=== PATIENT | female | born 1975 | race Caucasian/White ===

== ENCOUNTER → 2017-05-11 | Outpatient (CLI) | payer BC ==
--- NOTE | 2017-05-11 12:19 | Diagnostic Imaging Report ---
TECHNIQUE: Multiple real-time grayscale images were obtained over the gravid uterus. COMPARISON: There are no previous exams available for comparison. FINDINGS: There is a single live fetus in cephalic presentation. heart motion was noted and a rate of 138 bpm was recorded. There were no abnormalities identified. The placenta is anterior and there is no previa. The amniotic fluid volume is within normal limits. The growth parameters are fairly uniform. IMPRESSION: 1. There is a single live fetus approximately 28 weeks 5 days gestation + / - 3 weeks. EDC is 07/29/2017. 2. There were no abnormalities identified. 3. The growth parameters are fairly uniform. Biometrical measurements are as follows: Biparietal 7.22 cm, age 29 weeks 0 days. Head circumference 26.71 cm, age 29 weeks 0 days. Abdominal circumference 23.67 cm, age 28 weeks 0 days. Femur length 5.39 cm, age 28 weeks 4 days. Sonographic estimate age: 28 weeks 5 days. Sonographic estimated date of delivery: 07-29-17. Estimated Weight: 1213 gm (+/- 177 gm). LMP percentile: 74%. heart rate: 138 beats per minute. number: 1 of 1. Dictated by: Dictated on workstation # [id number]
== END ==
LOC: RAD 10:04
PROVIDERS: ATTEND Obstetrics & Gynecology
DX: O24.415 Gestational diabetes mellitus in pregnancy, controlled by oral hypoglycemic drugs (principal); Z3A.28 28 weeks gestation of pregnancy
CPT/HCPCS: 76805

== ENCOUNTER → 2017-05-29 | Outpatient (CLI) | payer BC ==
--- NOTE | 2017-05-29 20:19 | Diagnostic Imaging Report ---
INDICATION: Gestational diabetes. FINDINGS: Honeycutt gestation receives a normal 8 out of 8 biophysical profile score. Positioning was breech, the placenta anterior. There was no abruption or previa. IMPRESSION: 1. Normal 8 out of 8 biophysical profile, honeycutt gestation, in breech position. 2. Not mentioned above, nondilated cervix measuring 4.2 cm normal in length. Dictated by: Dictated on workstation # [id number]
== END ==
LOC: RAD 10:04
PROVIDERS: ATTEND Obstetrics & Gynecology
DX: O09.513 Supervision of elderly primigravida, third trimester (principal); O24.414 Gestational diabetes mellitus in pregnancy, insulin controlled; Z3A.00 Weeks of gestation of pregnancy not specified
CPT/HCPCS: 76805; 76819

== ENCOUNTER → 2017-06-11 | Outpatient (CLI) | payer BC ==
--- NOTE | 2017-06-11 13:54 | Diagnostic Imaging Report ---
INDICATION: Check growth, AMA, biophysical profile. TECHNIQUE: Multiple real-time grayscale images were obtained over the gravid uterus. COMPARISON: 05/11/2017 and 05/29/2017. FINDINGS: The recent OB ultrasound exam of 05/29/2017 noted a single live fetus with a biophysical profile score of 8/8. On this exam, the fetus is again identified. The fetus is cephalic in presentation. heart motion was noted and a rate of 133 bpm was recorded. The biophysical profile score remains 8/8 and within normal limits. There are no abnormalities identified. The placenta is anterior and there is no previa. The amniotic fluid volume is within normal limits. The growth parameters are fairly uniform. Biometrical measurements are as follows: Biparietal 8.3 cm, age 33 weeks 3 days. Head circumference 30.0 cm, age 33 weeks 2 days. Abdominal circumference 28.9 cm, age 33 weeks 0 days. Femur length 6.2 cm, age 32 weeks 2 days. Sonographic estimate age: 33 weeks 0 days. Sonographic estimated date of delivery: 07/30/17. Estimated Weight: 2046 gm (+/- 299 gm). LMP percentile: 69%. heart rate: 133 beats per minute. number: 1 of 1. IMPRESSION: 1. There is a single live fetus approximately 33 weeks gestation +/- 2 weeks. The EDC remains July 29, 2017. 2. There were no abnormalities identified. The biophysical profile score remains 8/8 and within normal limits. 3. The growth parameters have progressed as expected since the prior exam. Dictated by: Dictated on workstation # [id number]
== END ==
LOC: RAD 12:46
PROVIDERS: ATTEND Obstetrics & Gynecology
DX: O09.513 Supervision of elderly primigravida, third trimester (principal); O24.414 Gestational diabetes mellitus in pregnancy, insulin controlled; Z3A.33 33 weeks gestation of pregnancy
CPT/HCPCS: 76805; 76819

== ENCOUNTER → 2017-06-25 | Outpatient (CLI) | payer BC ==
--- NOTE | 2017-06-25 11:47 | Diagnostic Imaging Report ---
INDICATION: Gestational diabetes. TECHNIQUE: Multiple Real-time grayscale images were obtained over the gravid uterus. COMPARISON: 06/11/2017 FINDINGS: The heart rate is 160 BPM. The placenta is anterior. There is no placenta previa. The amniotic fluid index is 9 cm. There are breathing movements seen, as expected; however, the tone and movement did not meet the criteria for a total biophysical profile score of 4 out of 8 points. Biometrical measurements are as follows: Biparietal 8.8 cm, age 35 weeks 4 days. Head circumference 30.1 cm, age 34 weeks 3 days. Abdominal circumference 30.0 cm, age 34 weeks 4 days. Femur length 6.9 cm, age 35 weeks 2 days. Sonographic estimate age: 35 weeks 0 days. Sonographic estimated date of delivery: 07/30/17. Estimated Weight: 2508 gm (+/- 366 gm). LMP percentile: 70%. heart rate: 160 beats per minute. number: 1 of 1. IMPRESSION: The total biophysical profile score is 4 out of 8 points. The findings were called to Dr. Sidhu's nurse Ciera at 11:15 AM by Miss Sunita Hatch, the radiographer technologist who performed the exam. Dictated by: Dictated on workstation # [id number]
== END ==
LOC: RAD 10:07
PROVIDERS: ATTEND Nurse Practitioner
DX: O24.419 Gestational diabetes mellitus in pregnancy, unspecified control (principal); Z3A.35 35 weeks gestation of pregnancy
CPT/HCPCS: 76805; 76819

== ENCOUNTER 2017-06-30 16:35 | Outpatient (CLI) | payer BC ==
[~2017-06-30] VITALS: Ht 160 cm; Wt 78.9 kg
[2017-06-30] MEDS ORDERED: OMEP10SU PO (16:49)
[2017-06-30] MEDS ORDERED: PNV1TABL9 PO (16:49)
[2017-06-30] MEDS ORDERED: GLYB1TAB18 PO (16:49)
[2017-06-30] MEDS ORDERED: INFLUENZA TRIvalent 2017-2018 0.5 ML/45 MCG SYR IM ONE (17:30)
--- NOTE | 2017-06-30 17:51 | Diagnostic Imaging Report ---
INDICATION: Decreased movements. TECHNIQUE: Multiple real-time grayscale images were obtained over the gravid uterus. COMPARISON: None FINDINGS: There is a single live intrauterine gestation in cephalic position. Placenta is anterior and grade 2. Biometrical measurements are as follows: Biparietal 8.86 cm, age 35 weeks 6 days. Head circumference 31.32 cm, age 35 weeks 1 days. Abdominal circumference 29.91 cm, age 34 weeks 0 days. Femur length 6.64 cm, age 34 weeks 2 days. Sonographic estimate age: 34 weeks 6 days. Sonographic estimated date of delivery: 08/05/2017. Estimated Weight: 2391 gm (+/- 349 gm). LMP percentile: 15%. heart rate: 152 beats per minute. number: 1 of 1. Amniotic fluid index is 11.5 cm. IMPRESSION: Biophysical profile score is 8/8. No acute abnormality is demonstrated. Dictated by: Dictated on workstation # [id number]
--- NOTE | 2017-07-01 13:31 | Physician Query-Final Dx ---
ARIC BURDEN 07/01/17 1331: Clinic Account Progress/Dx Physician Query: Please give diagnosis Date of Service Jun 30, 2017 at 16:35 ADDI JOHNSTON DO 07/22/17 0652: Clinic Account Progress/Dx DIAGNOSIS: Diagnosis advanced maternal age, primigravid gestational diabetes, A1 decreased movement, third trimester ARIC BURDEN Jul 01, 2017 13:31 ADDI JOHNSTON DO Jul 22, 2017 06:52
== END 2017-06-30 18:05 | disposition home or self-care (01) ==
LOC: LDRP 16:35 → WSo 16:35
PROVIDERS: ATTEND Obstetrics & Gynecology
DX: O24.419 Gestational diabetes mellitus in pregnancy, unspecified control (principal); O36.8130 Decreased fetal movements, third trimester, not applicable or unspecified; O09.513 Supervision of elderly primigravida, third trimester; Z3A.35 35 weeks gestation of pregnancy; Z23 Encounter for immunization
CPT/HCPCS: 76805; 76819; 99213

== ENCOUNTER → 2017-07-17 | Outpatient (CLI) | payer BC ==
[~2017-07-17] MED LIST: GLYB1TAB18 PO; OMEP10SU PO; PNV1TABL9 PO
--- NOTE | 2017-07-17 16:24 | Diagnostic Imaging Report ---
INDICATION: Gestational diabetes. TECHNIQUE: Multiple real-time grayscale images were obtained over the gravid uterus. COMPARISON: 06/30/2017. FINDINGS: Single live intrauterine fetus is again demonstrated. The fetus remains vertex. The amniotic fluid index is normal at 9 cm. Placenta is anterior with no evidence of abruption or previa. Placenta is estimated grade 2. heartbeat of 138 beats per minute. biometric measurements are currently average for 37 weeks 2 days gestation with normal growth demonstrated since previous study. biophysical profile is normal scoring 8 of potential 8 points. Biometrical measurements are as follows: Biparietal 9.7 cm, age 37 weeks 0 days. Head circumference 32.7 cm, age 37 weeks 1 days. Abdominal circumference 33.3 cm, age 37 weeks 5 days. Femur length 7.4 cm, age 37 weeks 5 days. Sonographic estimate age: 37 weeks 2 days. Sonographic estimated date of delivery: 08/05/17. Estimated Weight: 3164 gm (+/- 462 gm). LMP percentile: 40%. heart rate: 138 beats per minute. number: 1 of 1. IMPRESSION: 1. 38 weeks 1 day live intrauterine by previous ultrasound with fetus within 40th percentile of growth. 2. Normal biophysical profile scoring 8 of potential 8 points. Dictated by: Dictated on workstation # [id number]
== END ==
LOC: RAD 12:33
PROVIDERS: ATTEND Obstetrics & Gynecology
DX: O24.410 Gestational diabetes mellitus in pregnancy, diet controlled (principal); O09.513 Supervision of elderly primigravida, third trimester; Z3A.37 37 weeks gestation of pregnancy
CPT/HCPCS: 76805; 76819

== ENCOUNTER 2017-07-23 20:06 | Inpatient (IN) | payer BC ==
[~2017-07-23] VITALS: Ht 160 cm; Wt 80.8 kg
[2017-07-23 20:09] VITALS: BP 116/76
[2017-07-23] MEDS ORDERED: MISOPROSTOL 100 MCG (CYTOTEC) TAB PO NR (20:15)
[2017-07-23] MEDS ORDERED: TERBUTALINE INJ 1 MG/ML (BRETHINE) AMP SC PRN (20:15)
[2017-07-23] MEDS ORDERED: MINERAL OIL CONCENTRATE 99.9% 15 ML UDC TOP PRN (20:15)
[2017-07-23] MEDS ORDERED: CATHETER FLUSH 10 ML SYR IV PRN (20:30)
[2017-07-23] MEDS: LACTATED RINGERS 1,000 ML IV SCH ×2 (20:38→20:39)
[2017-07-23 20:54] LABS: BASOPHILS % (AUTO) 0 % (0-10); EOSINOPHILS # (AUTO) 0.2 10^3/uL (0.0-0.3); EOSINOPHILS % (AUTO) 1 % (0-10); LYMPHOCYTES # (AUTO) 4.4 X 10^3 (1.0-4.0); LYMPHOCYTES % (AUTO) 19 % (12-44); MEAN CORPUSCULAR HEMOGLOBIN 31 PG (25-34); MEAN CORPUSCULAR HGB CONC 35 G/DL (32-36); MEAN CORPUSCULAR VOLUME 89 FL (80-99); MEAN PLATELET VOLUME 10.8 FL (7.4-10.4); MONOCYTES # (AUTO) 1.3 X 10^3 (0.0-1.0); MONOCYTES % (AUTO) 5 % (0-12); NEUTROPHILS # (AUTO) 17.3 X 10^3 (1.8-7.8); NEUTROPHILS % (AUTO) 75 % (42-75); PLATELET COUNT 411 10^3/uL (130-400); RED BLOOD COUNT 3.88 10^6/uL (4.35-5.85); WHITE BLOOD COUNT 23.2 10^3/uL (4.3-11.0)
[2017-07-23 21:09] LABS: BAND NEUTROPHILS 2 %; BASOPHILS % (MANUAL) 1 %; EOSINOPHILS % (MANUAL) 0 %; LYMPHOCYTES % (MANUAL) 16 %; NEUTROPHILS % (MANUAL) 81 %
[2017-07-23 22:07] LABS: BILIRUBIN,URINE NEGATIVE (NEGATIVE); KETONES,URINE 4+ (NEGATIVE); LEUKOCYTE ESTERASE ,URINE 1+ (NEGATIVE); NITRITE,URINE NEGATIVE (NEGATIVE); PH,URINE 6 (5-9); PROTEIN,URINE 2+ (NEGATIVE); UROBILINOGEN,URINE NORMAL (NORMAL)
[2017-07-23 22:30] VITALS: BP 105/61
[2017-07-24] VITALS (40 sets, daily range): BP systolic 105–155; BP diastolic 60–84
[2017-07-24] MEDS ORDERED: NS IV 1000 ML 1,000 ML ONE (00:53)
[2017-07-24] MEDS ORDERED: NS IV 500 ML 500 ML IV ONE (02:00)
[2017-07-24] MEDS: MISOPROSTOL 100 MCG (CYTOTEC) TAB PO SCH ×3 (02:04→09:59)
[2017-07-24] MEDS: LACTATED RINGERS 1,000 ML IV SCH ×3 (04:36→13:05)
[2017-07-24] MEDS ORDERED: PROMETHAZINE INJ 25 MG/ML (PHENERGAN) AMP IVP PRN (12:30)
[2017-07-24] MEDS ORDERED: fentaNYL INJECTION 100 MCG/2 ML AMP IVP PRN (12:30)
[2017-07-24] MEDS ORDERED: SUFENTA 0.6MCG/ML BUPIVA 0.125 100 ML ONE (12:58)
[2017-07-24] MEDS ORDERED: fentaNYL INJECTION 100 MCG/2 ML AMP ONE (14:15)
[2017-07-24] MEDS ORDERED: LIDOCAINE PF 2% 5 ML (XYLOCAINE) VIAL ONE (14:16)
[2017-07-24] MEDS ORDERED: BUPIVACAINE 0.25% 30 ML (SENSORCAINE) VIAL ONE (14:16)
[2017-07-24] MEDS ORDERED: LACTATED RINGERS 1,000 ML IV SCH (14:56)
[2017-07-24] MEDS ORDERED: NALOXONE 0.4 MG/ML 1 ML (NARCAN) VIAL IV PRN (15:00)
[2017-07-24] MEDS ORDERED: ONDANSETRON 4 MG/2 ML (SDV) Z0FRAN IV PRN (15:00)
[2017-07-24] MEDS ORDERED: EPIDURAL (SUFENTA 0.6MCG/ML BUPIVA 0.125%) 100 ML BAG EPI PRN (15:00)
[2017-07-24] MEDS ORDERED: diphenhydrAMINE 50 MG/ML INJ (BENADRYL) IV PRN (15:00)
[2017-07-24] MEDS ORDERED: LIDOCAINE/EPI 2% 1:200,00 (XYLOCAINE) 10 ML VIAL ONE (15:45)
[2017-07-24] MEDS ORDERED: OXYTOCIN/NORMAL SALINE 500 ML IV ONE (15:45)
[2017-07-24] MEDS ORDERED: OXYTOCIN/NORMAL SALINE 500 ML IV SCH ×2 (17:51→18:51)
[2017-07-24] MEDS ORDERED: MEASLES,MUMPS,RUBELLA 1 EA INJ SQ ONE (18:00)
[2017-07-24] MEDS ORDERED: WITCH HAZEL(TUCKS) 40 EA JAR TOP PRN (18:00)
[2017-07-24] MEDS ORDERED: TETANUS,DIPTH,PERTUSS P/F (BOOSTRIX) 0.5 ML VIAL IM ONE (18:00)
[2017-07-24] MEDS ORDERED: BENZOCAINE/MENTHOL (DERMOPLAST) 56 ML CAN TP PRN (18:00)
[2017-07-24] MEDS ORDERED: DIBUCAINE (NUPERCAINAL) 1% OINT 30 GM TOP PRN (18:00)
--- NOTE | 2017-07-24 18:00 | OB Labor & Delivery Record ---
Vag Delivery Note Vag Delivery Note Date of Delivery: 07/24/17 Preoperative Diagnosis: Uday Sorensen is a 42 /Para 1/0 ,Gestational Age 39 weeks with gestational diabetes, A1, advanced maternal age. She is induced at 39 weeks to prevent complications/stillbirth associated with AMA Postoperative Diagnosis: Same Surgeon: ADDI JOHNSTON Anesthesia: Epidural Delivery Type: vacuum assisted vaginal delivery Findings: [] Viable female , apgars 7/8/9, weight 6#9oz Lacerations: 1st degree Intact placenta with 3 vessel cord. nuchal cord x 1 reduced, no body cord or shoulder dystocia Estimated Blood Loss: 200 ml Complications: None Condition: Stable Description of Procedure: The patient is a 42 /Para 1/0 ,Gestational Age 39 weeks with gestational diabetes, A1, advanced maternal age. She is induced at 39 weeks to prevent complications/stillbirth associated with AMA. She was admitted and informed consent was obtained. Her labor course was remarkable for oral misoprostol x 4 doses, then AROM. did not require augmentations until pushing. She progressed to complete dilatation and began to push. She was then set up for delivery. At +2 station, due to prolonged bradycardia, the kiwi vacuum was placed. with two pushes and no popoffs, the head was brought to 4+ station. At this point the hearrate recovered and the vacuum was removed and the baby was allowed to deliver with maternal effort. The 's head was delivered atraumatically in the RIZWANA position. The shoulders and remainder of the 's body were then delivered without difficulty. Upon delivery, the head was held below the level of the perineum and the mouth and nares were bulb suctioned. The cord was doubly clamped and cut and the was handed off to the pediatric staff. An intact placenta with 3-vessel cord delivered via Juliette and there was found to be minimal bleeding.~ Vigorous fundal massage was performed and the fundus was found to be firm. IV oxytocin was given. Examination of the vagina and perineum revealed a 1st laceration repaired in the usual fashion with 3-0 vicryl suture. Following the repair, sponge, instrument and needle counts were correct. Mom and baby were both in stable condition in the labor suite. Vitals - Labs Vital Signs - I&O Vital Signs Date Time Temp Pulse Resp B/P (MAP) Pulse Ox O2 Delivery O2 Flow Rate FiO2 10/27/17 16:30 70 18 106/76 100 Non Rebreather 15.00 07/24/17 16:15 66 18 108/69 100 Non Rebreather 15.00 07/24/17 16:00 18 100 Non Rebreather 15.00 07/24/17 15:45 72 18 110/71 99 Non Rebreather 15.00 07/24/17 15:30 77 18 106/61 99 Non Rebreather 15.00 07/24/17 15:15 71 18 113/67 99 Non Rebreather 15.00 07/24/17 15:00 68 18 117/69 100 Room Air 07/24/17 14:57 73 18 125/73 100 Room Air 07/24/17 14:54 69 18 124/71 99 Room Air 07/24/17 14:51 67 18 129/81 99 Room Air 07/24/17 14:48 73 18 155/74 100 Room Air 07/24/17 14:45 74 18 128/75 100 Room Air 07/24/17 14:42 68 18 127/75 100 Room Air 07/24/17 14:39 71 18 138/81 100 Room Air 07/24/17 14:36 71 18 139/79 100 Room Air 07/24/17 14:33 67 18 130/76 100 Room Air 07/24/17 14:30 67 18 140/84 98 Room Air 07/24/17 14:15 71 18 135/82 99 Room Air 07/24/17 14:00 72 18 120/66 Room Air 07/24/17 13:45 18 Room Air 07/24/17 13:30 72 18 110/67 Room Air 07/24/17 13:00 67 18 119/75 Room Air 07/24/17 12:30 18 Room Air 07/24/17 12:00 77 18 118/75 Room Air 07/24/17 11:30 75 18 122/77 Room Air 07/24/17 11:00 75 18 116/77 Room Air 07/24/17 10:30 67 18 116/70 Room Air 07/24/17 10:00 98.2 71 18 120/63 Room Air 07/24/17 09:00 98.0 76 18 111/70 Room Air 07/24/17 06:30 Room Air 07/24/17 06:00 98.4 74 107/68 Room Air 07/24/17 05:30 Room Air 07/24/17 05:00 Room Air 07/24/17 04:30 Room Air 07/24/17 04:10 98.0 83 111/62 07/24/17 04:00 Room Air 07/24/17 03:30 Room Air 07/24/17 03:00 Non Rebreather 10.00 07/24/17 02:30 Non Rebreather 10.00 07/24/17 02:00 Non Rebreather 10.00 07/24/17 01:48 Non Rebreather 10.00 07/24/17 01:08 97.6 81 18 116/73 07/23/17 23:30 98.5 07/23/17 22:30 81 105/61 07/23/17 21:00 98.1 07/23/17 20:09 111 18 116/76 I & O 07/25/17 07:00 Intake Total 2000 ml Balance 2000 ml Labs Laboratory Tests 07/23/17 20:15: Urine Color YELLOW, Urine Clarity SLIGHTLY CLOUDY, Urine pH 6, Urine Specific [place]wood 1.020, Urine Protein 2+H, Urine Glucose (UA) NEGATIVE, Urine Ketones 4+H , Urine Nitrite NEGATIVE, Urine Bilirubin NEGATIVE, Urine Urobilinogen NORMAL, Urine Leukocyte Esterase 1+H, Urine RBC (Auto) 1+H, Urine RBC 0-2, Urine WBC 10- 25H, Urine Squamous Epithelial Cells 10-25H, Urine Crystals NONE, Urine Bacteria LARGEH, Urine Casts NONE, Urine Mucus NEGATIVE, Urine Culture Indicated YES 07/23/17 20:20: White Blood Count 23.2H, Red Blood Count 3.88L, Hemoglobin 11.9, Hematocrit 35, Mean Corpuscular Volume 89, Mean Corpuscular Hemoglobin 31, Mean Corpuscular Hemoglobin Concent 35, Red Cell Distribution Width 13.0, Platelet Count 411H, Mean Platelet Volume 10.8H, Neutrophils (%) (Auto) 75, Lymphocytes (%) (Auto) 19 , Monocytes (%) (Auto) 5, Eosinophils (%) (Auto) 1, Basophils (%) (Auto) 0, Neutrophils # (Auto) 17.3H, Lymphocytes # (Auto) 4.4H, Monocytes # (Auto) 1.3H, Eosinophils # (Auto) 0.2, Basophils # (Auto) 0.0, Neutrophils % (Manual) 81, Lymphocytes % (Manual) 16, Monocytes % (Manual) 0, Eosinophils % (Manual) 0, Basophils % (Manual) 1, Band Neutrophils 2, Blood Morphology Comment NORMAL 07/23/17 20:56: Glucometer 114H 07/24/17 05:47: Glucometer 70 Microbiology 07/23/17 Urine Culture - Preliminary, Resulted ADDI JOHNSTON DO Jul 24, 2017 18:00
[2017-07-24] MEDS ORDERED: HYDR-3812 PO (18:02)
--- NOTE | 2017-07-24 18:08 | Discharge Inst-Women's Service ---
Discharge Inst-Women's Serv Depart Medication/Instructions New, Converted or Re-Newed RX: RX on Chart ( ) Final Diagnosis gestational diabetes, A2 Advanced maternal age, primipara vaginal delivery epidural Consults/Follow Up Additional Follow Up: Yes (6 weeks for pp exam and glucose testing) Activity Activity: Activity as Tolerated Driving Instructions: You May Drive NO SMOKING: NO SMOKING Nothing Inside Vagina: No Douching, No [place] (6 weeks), No Tampons Diet Discharge Diet: No Restrictions Symptoms to Report to : Swelling Increased, Bleeding Excessive, Pain Increased, Fever Over 101 Degrees F, Vaginal Bleeding Increase, Cramps in Feet or Legs, Vaginal Discharge Foul For Any Problems or Questions: Contact Your Physician Skin/Wound Care Bathing Instructions: ADDI Davila DO Jul 24, 2017 18:08
[2017-07-24] MEDS ORDERED: IBUPROFEN 600 MG (MOTRIN) TAB PO ONE (18:36)
[2017-07-24] MEDS: HYDROcodone/APAP 5 MG/325 MG (LORTAB) TAB PO PRN ×2 (20:33→23:34)
[2017-07-24] MEDS ORDERED: CATHETER FLUSH 10 ML SYR IV SCH (22:00)
[2017-07-25 03:10] VITALS: BP 98/62
[2017-07-25] MEDS: HYDROcodone/APAP 5 MG/325 MG (LORTAB) TAB PO PRN ×4 (06:07→20:23)
[2017-07-25 07:29] LABS: BASOPHILS % (AUTO) 0 % (0-10); EOSINOPHILS # (AUTO) 0.1 10^3/uL (0.0-0.3); EOSINOPHILS % (AUTO) 1 % (0-10); LYMPHOCYTES # (AUTO) 2.9 X 10^3 (1.0-4.0); LYMPHOCYTES % (AUTO) 11 % (12-44); MEAN CORPUSCULAR HEMOGLOBIN 31 PG (25-34); MEAN CORPUSCULAR HGB CONC 34 G/DL (32-36); MEAN CORPUSCULAR VOLUME 89 FL (80-99); MEAN PLATELET VOLUME 10.2 FL (7.4-10.4); MONOCYTES # (AUTO) 1.6 X 10^3 (0.0-1.0); MONOCYTES % (AUTO) 6 % (0-12); NEUTROPHILS # (AUTO) 22.4 X 10^3 (1.8-7.8); NEUTROPHILS % (AUTO) 83 % (42-75); PLATELET COUNT 355 10^3/uL (130-400); RED BLOOD COUNT 3.59 10^6/uL (4.35-5.85); RED CELL DISTRIBUTION WIDTH 13.1 % (10.0-14.5); WHITE BLOOD COUNT 27.1 10^3/uL (4.3-11.0)
--- NOTE | 2017-07-25 08:31 | Progress Note-Standard ---
Standard Progress Note Progress Notes/Assess & Plan Date Seen by Provider: Jul 25, 2017 Time Seen by Provider: 08:30 Progress/Assessment & Plan this patient is without complaint. She is ambulating, voiding, tolerating by mouth well, has good pain control.she denies headache, denies shortness of breath, denies nausea vomiting, and denies chest pain. Vital Signs Date Time Temp Pulse Resp B/P (MAP) Pulse Ox O2 Delivery O2 Flow Rate FiO2 07/25/17 03:10 73 18 98/62 97 Room Air 07/24/17 20:15 78 18 110/63 Room Air 07/24/17 19:30 97.9 74 18 116/72 Room Air 07/24/17 18:35 77 18 119/70 Room Air 07/24/17 18:20 77 18 120/72 Room Air 07/24/17 18:05 77 18 116/73 Room Air 07/24/17 17:50 86 18 113/60 100 Room Air 07/24/17 17:45 86 18 117/63 100 Non Rebreather 15.00 07/24/17 17:30 77 18 132/75 100 Non Rebreather 15.00 07/24/17 17:15 66 18 122/74 100 Non Rebreather 15.00 07/24/17 17:00 67 18 105/66 100 Non Rebreather 15.00 07/24/17 16:45 98.5 64 18 114/73 100 Non Rebreather 15.00 07/24/17 16:30 70 18 106/76 100 Non Rebreather 15.00 07/24/17 16:15 66 18 108/69 100 Non Rebreather 15.00 07/24/17 16:00 18 100 Non Rebreather 15.00 07/24/17 15:45 72 18 110/71 99 Non Rebreather 15.00 07/24/17 15:30 77 18 106/61 99 Non Rebreather 15.00 07/24/17 15:15 71 18 113/67 99 Non Rebreather 15.00 07/24/17 15:00 68 18 117/69 100 Room Air 07/24/17 14:57 73 18 125/73 100 Room Air 07/24/17 14:54 69 18 124/71 99 Room Air 07/24/17 14:51 67 18 129/81 99 Room Air 07/24/17 14:48 73 18 155/74 100 Room Air 07/24/17 14:45 74 18 128/75 100 Room Air 07/24/17 14:42 68 18 127/75 100 Room Air 07/24/17 14:39 71 18 138/81 100 Room Air 07/24/17 14:36 71 18 139/79 100 Room Air 07/24/17 14:33 67 18 130/76 100 Room Air 07/24/17 14:30 67 18 140/84 98 Room Air 07/24/17 14:15 71 18 135/82 99 Room Air 07/24/17 14:00 72 18 120/66 Room Air 07/24/17 13:45 18 Room Air 07/24/17 13:30 72 18 110/67 Room Air 07/24/17 13:00 67 18 119/75 Room Air 07/24/17 12:30 18 Room Air 07/24/17 12:00 77 18 118/75 Room Air 07/24/17 11:30 75 18 122/77 Room Air 07/24/17 11:00 75 18 116/77 Room Air 07/24/17 10:30 67 18 116/70 Room Air 07/24/17 10:00 98.2 71 18 120/63 Room Air 07/24/17 09:00 98.0 76 18 111/70 Room Air vital signs are stable. Patient is afebrile. The abdomen is benign. The fundus is firm below the umbilicus and nontender. Extremities show no clubbing or cyanosis. There is no Homans sign. Assessment and plan day number 1 status post term spontaneous vaginal delivery doing well. Plan is for routine convalescence care today and discharge home at patient's request this evening or tomorrow as she prefers KAROLINA ERICKSON MD Jul 25, 2017 8:31 am
[2017-07-25 08:53] VITALS: BP 106/69
[2017-07-25] MEDS: PRENATAL VITAMIN 1 EA TAB PO SCH (08:54)
[2017-07-25] MEDS: FERROUS SULF 325 MG (IRON) TAB PO SCH (08:54)
[2017-07-25] MEDS: DOCUSATE SODIUM 100 MG (COLACE) CAP PO SCH ×3 (08:54→20:23)
--- NOTE | 2017-07-25 10:44 | Anesthesia-Regional Post-Op ---
Regional Patient Condition Mental Status: Alert, Oriented x3 Circulation: Same as Pre-Op Headache: Absent Sensation: Full Recovery Motor Block: Absent Post Op Complications Complications None Follow Up Care/Instructions Patient Instructions None needed. Anesthesia/Patient Condition Patient is doing well, no complaints, stable vital signs, no apparent adverse anesthesia problems. No complications reported per nursing. MADDY DURAN CRNA Jul 25, 2017 10:44
[2017-07-25 11:50] VITALS: BP 110/72
[2017-07-25 20:00] VITALS: BP 111/71
[2017-07-26 03:30] VITALS: BP 111/70
--- NOTE | 2017-07-26 09:15 | Progress Note-Standard ---
Standard Progress Note Progress Notes/Assess & Plan Date Seen by Provider: Jul 26, 2017 Time Seen by Provider: 09:14 Progress/Assessment & Plan this patient is without complaint. She is ambulating, voiding, tolerating by mouth well, has good pain control.she denies headache, denies shortness of breath, denies nausea vomiting, and denies chest pain. Vital Signs Date Time Temp Pulse Resp B/P (MAP) Pulse Ox O2 Delivery O2 Flow Rate FiO2 07/25/17 03:10 73 18 98/62 97 Room Air 07/24/17 20:15 78 18 110/63 Room Air 07/24/17 19:30 97.9 74 18 116/72 Room Air 07/24/17 18:35 77 18 119/70 Room Air 07/24/17 18:20 77 18 120/72 Room Air 07/24/17 18:05 77 18 116/73 Room Air 07/24/17 17:50 86 18 113/60 100 Room Air 07/24/17 17:45 86 18 117/63 100 Non Rebreather 15.00 07/24/17 17:30 77 18 132/75 100 Non Rebreather 15.00 07/24/17 17:15 66 18 122/74 100 Non Rebreather 15.00 07/24/17 17:00 67 18 105/66 100 Non Rebreather 15.00 07/24/17 16:45 98.5 64 18 114/73 100 Non Rebreather 15.00 07/24/17 16:30 70 18 106/76 100 Non Rebreather 15.00 07/24/17 16:15 66 18 108/69 100 Non Rebreather 15.00 07/24/17 16:00 18 100 Non Rebreather 15.00 07/24/17 15:45 72 18 110/71 99 Non Rebreather 15.00 07/24/17 15:30 77 18 106/61 99 Non Rebreather 15.00 07/24/17 15:15 71 18 113/67 99 Non Rebreather 15.00 07/24/17 15:00 68 18 117/69 100 Room Air 07/24/17 14:57 73 18 125/73 100 Room Air 07/24/17 14:54 69 18 124/71 99 Room Air 07/24/17 14:51 67 18 129/81 99 Room Air 07/24/17 14:48 73 18 155/74 100 Room Air 07/24/17 14:45 74 18 128/75 100 Room Air 07/24/17 14:42 68 18 127/75 100 Room Air 07/24/17 14:39 71 18 138/81 100 Room Air 07/24/17 14:36 71 18 139/79 100 Room Air 07/24/17 14:33 67 18 130/76 100 Room Air 07/24/17 14:30 67 18 140/84 98 Room Air 07/24/17 14:15 71 18 135/82 99 Room Air 07/24/17 14:00 72 18 120/66 Room Air 07/24/17 13:45 18 Room Air 07/24/17 13:30 72 18 110/67 Room Air 07/24/17 13:00 67 18 119/75 Room Air 07/24/17 12:30 18 Room Air 07/24/17 12:00 77 18 118/75 Room Air 07/24/17 11:30 75 18 122/77 Room Air 07/24/17 11:00 75 18 116/77 Room Air 07/24/17 10:30 67 18 116/70 Room Air 07/24/17 10:00 98.2 71 18 120/63 Room Air 07/24/17 09:00 98.0 76 18 111/70 Room Air vital signs are stable. Patient is afebrile. The abdomen is benign. The fundus is firm below the umbilicus and nontender. Extremities show no clubbing or cyanosis. There is no Homans sign. Assessment and plan day number 1 status post term spontaneous vaginal delivery doing well. Plan is for routine convalescence care today and discharge home at patient's request this evening or tomorrow as she prefers 2016 Patient without complaint. She is ambulating, voiding, told feel, has good pain control and is requesting discharge home. Vital Signs Date Time Temp Pulse Resp B/P (MAP) Pulse Ox O2 Delivery O2 Flow Rate FiO2 07/26/17 03:30 99.3 75 18 111/70 96 Room Air 07/25/17 20:00 98.1 82 18 111/71 96 Room Air 07/25/17 11:50 98.4 89 18 110/72 97 Room Air vital signs are stable. Patient is afebrile. Fundus is firm below the umbilicus nontender. Extremities show no clubbing cyanosis. There is no Homans sign. Assessment and day number 2 status post term spontaneous vaginal delivery doing well. Plan is for discharge home with follow-up in clinic KAROLINA ERICKSON MD Jul 26, 2017 9:15 am
[2017-07-26 09:47] VITALS: BP 123/77
[2017-07-26] MEDS: FERROUS SULF 325 MG (IRON) TAB PO SCH (10:45)
[2017-07-26] MEDS: DOCUSATE SODIUM 100 MG (COLACE) CAP PO SCH (10:45)
[2017-07-26] MEDS: PRENATAL VITAMIN 1 EA TAB PO SCH (10:45)
== END 2017-07-26 12:25 | disposition home or self-care (01) | DRG 775 ==
LOC: LDRP 20:06
PROVIDERS: ADMIT Obstetrics & Gynecology; ATTEND Obstetrics & Gynecology
PROC: 3E0P7GC Introduction of Other Therapeutic Substance into Female Reproductive, Via Natural or Artificial Opening (ICD-10-PCS; 2017-07-23)
PROC: 0HQ9XZZ Repair Perineum Skin, External Approach (ICD-10-PCS; principal; 2017-07-24)
PROC: 10D07Z6 Extraction of Products of Conception, Vacuum, Via Natural or Artificial Opening (ICD-10-PCS; 2017-07-24)
DX: O24.429 Gestational diabetes mellitus in childbirth, unspecified control (principal); O70.0 First degree perineal laceration during delivery; O76 Abnormality in fetal heart rate and rhythm complicating labor and delivery; O69.81X0 Labor and delivery complicated by cord around neck, without compression, not applicable or unspecified; Z3A.39 39 weeks gestation of pregnancy; Z37.0 Single live birth
CPT/HCPCS: 36415; 81000; 82962; 85007; 85025; 85027; 86850; 86900; 86901; 87088

== ENCOUNTER 2022-09-01 05:38 | Outpatient (CLI) | payer BC ==
[~2022-09-01] VITALS: Ht 160 cm; Wt 81.0 kg
[~2022-09-01 05:38] MED LIST changes: +ACHD5005 PO; -GLYB1TAB18 PO; -OMEP10SU PO; +OMEP10SU2 PO; +[UNRECOGNIZED DRUG - CODE] PO
[2022-09-02] MEDS ORDERED: IUD (13:14)
== END 2022-09-02 13:19 | disposition home or self-care (01) ==
LOC: PREOP 05:38
PROVIDERS: ATTEND Surgery
DX: Z01.818 Encounter for other preprocedural examination (principal)

== ENCOUNTER 2022-09-08 10:45 | Day surgery (SDC) | payer BC, OTHER ==
[~2022-09-08] VITALS: Ht 160 cm; Wt 81.0 kg
[~2022-09-08 10:45] MED LIST changes: +IUD
[2022-09-08] MEDS ORDERED: LACTATED RINGERS 1,000 ML IV STA (10:52)
[2022-09-08] MEDS ORDERED: HURRICAINE EXT TUBE (BENZOCAINE) XX PRN (11:00)
--- NOTE | 2022-09-08 11:01 | Progress Note-Pre Operative ---
Pre-Operative Progress Note Date of Available H&P: Aug 28, 2022 Date H&P Reviewed: Sep 08, 2022 Time H&P Reviewed: 10:58 History & Physical: H&P Reviewed, Patient Examed, No changes noted Pre-Operative Diagnosis: GERD, Screening ANNABELLE CARVAJAL DO Sep 08, 2022 11:01
[2022-09-08 11:16] VITALS: BP 108/79
[2022-09-08] MEDS ORDERED: MIDAZOLAM 2 MG/2 ML (VERSED) VIAL ONE (12:10)
[2022-09-08] MEDS ORDERED: PROPOFOL INJECTION 50 ML IV ONE (12:10)
[2022-09-08 12:50] VITALS: BP 128/84
--- NOTE | 2022-09-08 12:53 | Progress Note-Post Operative ---
Post-Operative Progess Note Surgeon (s)/Bag Worker (s) Surgeon ANNABELLE CARVAJAL DO Bag Worker: RIVER ReyesII Pre-Operative Diagnosis GERD, Screening Post-Operative Diagnosis Gastritis Esophagitis Hiatal Hernia Polyps int hemorrhoids Procedure & Operative Findings Date of Procedure 09/08/22 Procedure Performed/Findings EGD with biopsy Colonoscopy with snare polypectomy PROCEDURE NOTE: After informed consent was obtained, the patient was brought to the endoscopy suite, placed in bed in left lateral decubitus position. She was administered IV sedation by the RANGE ECOLOGIST who then monitored vitals the entire time, heart rate, blood pressure and pulse ox and the scope was inserted down the mouth through the esophagus into the stomach. On the way down, noted some mild esophagitis, took a picture, pushed into the stomach, pushed past the antrum into the duodenum. Duodenum looked good. Pulled back and did a biopsy of the antrum, then retroflexed the scope, saw a moderate hiatal hernia, took a picture of this and then pulled the scope into the GE junction, took another picture of the hiatal hernia and then did a biopsy of the GE junction. Pushed the scope back into the stomach, did two biopsies of the body of the stomach and then suctioned all the air out of the stomach. At this point pulled the scope up the esophagus and out the mouth. Switched camera, switched gloves, went down below and started the colonoscopy. Pushed all the way to about 150 cm and pushed into the cecum. In the ascending colon I saw a polyp and removed it with snare polypectomy. Once, int the cecum I took a picture of appendiceal orifice and noted the ileocecal valve. Then slowly withdrew the scope insufflating to look circumferentially at the hummel starting in the cecum, up the ascending colon to the hepatic flexure, then down the transverse colon to the splenic flexure and into the descending colon down. Found another polyp here and did another snare polypectomy. Finally, into the sigmoid and then into the rectal vault; retroflexed the scope and took a picture of the internal hemorrhoids. The patient tolerated the procedure and she recovered in the endoscopy suite. Recommended for repeat colonoscopy in 5 years Anesthesia Type IV sedation by RANGE ECOLOGIST Estimated Blood Loss Estimated blood loss (mL): scant Specimens/Packing Specimens Removed antral bx body of stomach x 2 GE jxn bx asc colon polyp desc colon polyp ANNABELLE CARVAJAL DO Sep 08, 2022 12:53
--- NOTE | 2022-09-08 12:54 | Endoscopy Discharge Instruct ---
Endo Procedure/Findings Findings 1.: Gastritis 2.: Hiatal Hernia 3.: Polyp 4.: Internal Hemorrhoids Discharge Instructions - Activity: You might feel a little sleepy until tomorrow. This is due to the medicine you received to relax you. Until tomorrow, you should: NOT drive a car, operate machinery or power tools. NOT drink any alcoholic beverages. NOT make any important decisions or sign importortant papers. Do not return to work until tomorrow, unless otherwise instructed. Resume previous activities tomorrow. Diet: Start by taking liquids. If you tolerate liquids, advance to solid food. 1.: EGD in 3 years 2.: Colonscopy in 5 years Notify Physician - If you experience excessive bleeding, unusual abdominal pain, fever, or chest pain, contact your doctor immediately. ANNABELLE CARVAJAL DO Sep 08, 2022 12:54
[2022-09-08 12:55] VITALS: BP 130/85
[2022-09-08 13:00] VITALS: BP 138/76
[2022-09-08 13:30] VITALS: BP 130/86
[2022-09-08 13:32] VITALS: BP 130/86
--- NOTE | 2022-09-08 13:33 | Anesthesia-General Post-Op ---
MAC Patient Condition Mental Status/LOC: Same as Preop Cardiovascular: Satisfactory Nausea/Vomiting: Absent Respiratory: Satisfactory Pain: Controlled Complications: Absent Post Op Complications Complications None Follow Up Care/Instructions Patient Instructions None needed. Anesthesiology Discharge Order Discharge Order Patient is doing well, no complaints, stable vital signs, no apparent adverse anesthesia problems. No complications reported per nursing. GABY SMITH CRNA Sep 08, 2022 13:33
== END 2022-09-08 14:00 | disposition home or self-care (01) ==
LOC: ENDO 10:45
PROVIDERS: ATTEND Surgery
DX: Z12.11 Encounter for screening for malignant neoplasm of colon (principal); K29.50 Unspecified chronic gastritis without bleeding; K21.00 Gastro-esophageal reflux disease with esophagitis, without bleeding; K44.9 Diaphragmatic hernia without obstruction or gangrene; K63.5 Polyp of colon; K64.8 Other hemorrhoids; E66.9 Obesity, unspecified; Z68.31 Body mass index [BMI] 31.0-31.9, adult; B96.81 Helicobacter pylori [H. pylori] as the cause of diseases classified elsewhere
CPT/HCPCS: 84703; 88305; 88342

== ENCOUNTER → 2022-10-14 | Outpatient (CLI) | payer OTHER | LOC: LAB 08:36 | PROVIDERS: ATTEND Surgery | DX: A04.8 Other specified bacterial intestinal infections (principal) | CPT/HCPCS: 36415; 87338 ==